=== PATIENT | female | born 1945 | race Two or more races ===

== ENCOUNTER 2022-12-03 02:40 | Emergency (ER) | payer OTHER ==
[~2022-12-03] VITALS: Ht 149.9 cm; Wt 78.0 kg
[2022-12-03] MEDS ORDERED: DEPAKOTE ER250 MG (02:49)
[2022-12-03] MEDS ORDERED: PROZAC10 MG (02:49)
== END 2022-12-03 11:38 | disposition home or self-care (01) ==
LOC: ER 02:40
DX: N30.90 Cystitis, unspecified without hematuria (principal); Z88.6 Allergy status to analgesic agent

== ENCOUNTER 2022-12-08 06:22 | Emergency (ER) | payer OTHER ==
[~2022-12-08] VITALS: Ht 149.9 cm; Wt 79.4 kg
[~2022-12-08 06:22] MED LIST: DEPAKOTE ER250 MG; PROZAC10 MG
== END 2022-12-08 10:38 | disposition home or self-care (01) ==
LOC: ER 06:22
DX: R30.0 Dysuria (principal); E11.9 Type 2 diabetes mellitus without complications; I10 Essential (primary) hypertension; Z88.8 Allergy status to other drugs, medicaments and biological substances

== ENCOUNTER 2023-01-19 21:15 | Emergency (ER) | payer OTHER ==
[~2023-01-19] VITALS: Ht 149.9 cm; Wt 68.9 kg
[2023-01-20] MEDS ORDERED: SILVADENE20 GM TOP (02:19)
== END 2023-01-20 02:26 ==
LOC: ER 21:15
DX: L30.8 Other specified dermatitis (principal); N39.0 Urinary tract infection, site not specified

== ENCOUNTER 2023-01-27 03:00 | Inpatient (IN) | payer OTHER ==
[~2023-01-27] VITALS: Ht 149.9 cm; Wt 68.9 kg
[~2023-01-27 03:00] MED LIST changes: +SILVADENE20 GM TOP
--- NOTE | 2023-01-27 03:30 | NUR ---
SE RECIBE FEMINA ALERTA Y ORIENTADA X3 QUIEN REFIERE ARDOR Y DOLOR VAGINAL ACOMPANADO DE SECRECIONES KIRTI DESDE HACE MAS DE 3 SEMANAS.
--- NOTE | 2023-01-27 04:19 | NUR ---
PTE EVALUADA POR QUIEN INDICA TX, PTE REFIERE ENTENDER Y ACEPTAR. ADMINISTRA MEDICAMENTOS Y BROCK MUESTRAS DE LABORATORIO MARTINE ORDEN MEDICA Y SIGUIENDO MEDIDAS ASEPTICAS.
--- NOTE | 2023-01-27 07:28 | NUR ---
SE RECIBE PTE FEMENINA DE 77 ANOS ALERTA Y ORIENTADA X3 QUIEN AL MOMENTO NO REFIERE DOLOR. PTE AL MOMENTO SE OBSERBA EN DESCANSO ABSOLUTO EN CAMA RECIBIENDO INFUCION DE 0,9% NSS A 125 ML/HRA POR MEDIO DE ANGIO #18 EN BRAZO IZQ. PTE AL MOMENTO PEND A ENTREGA DE U/A.
--- NOTE | 2023-01-27 21:17 | NUR ---
SE REALIZA CAMBIO DE PANAL A PTE, SE RENEA ASISTENCIA. SE INSERTA SONDA URINARIA A GRAVEDAD, TAMANO #16, BAJO MEDIDAS ESTERILES, MARTINE ORDEN EMDICA. SE OBSERVA EGRESO DE ORINA COLOR AMARILLO AMRY. SE DESTINY PTE EN WILTON NIVEL MAS BAJO CON BARANDAS ELEVADAS Y FRENOS COLOCADOS POR SEGURIDAD.
[2023-01-30] MEDS ORDERED: LISINOPRIL10 MG (07:43)
[2023-02-06] MEDS ORDERED: PEPCID AC20 MG PO ×2 (18:57→19:04)
[2023-02-06] MEDS ORDERED: MACROBID 100 M100 MG PO ×2 (18:57→19:03)
[2023-02-06] MEDS ORDERED: DOLOGESIC 500-1 EACH PO (18:59)
== END 2023-02-06 20:16 | disposition home or self-care (01) | DRG 690 ==
LOC: ER 03:00 → MEDI 22:44 → SEC-K 22:44 → MEDI 23:31 → MEDJ 02-01 20:54
PROVIDERS: General Practice; ADMIT Specialist; ATTEND Specialist
PROC: BW21YZZ Computerized Tomography (CT Scan) of Abdomen and Pelvis using Other Contrast (ICD-10-PCS; 2023-01-27)
PROC: BW21YZZ Computerized Tomography (CT Scan) of Abdomen and Pelvis using Other Contrast (ICD-10-PCS; 2023-01-30)
PROC: BR2CYZZ Computerized Tomography (CT Scan) of Pelvis using Other Contrast (ICD-10-PCS; 2023-01-31)
PROC: 02HV33Z Insertion of Infusion Device into Superior Vena Cava, Percutaneous Approach (ICD-10-PCS; principal; 2023-02-01)
DX: N39.0 Urinary tract infection, site not specified (principal); K52.89 Other specified noninfective gastroenteritis and colitis; E86.0 Dehydration; I10 Essential (primary) hypertension; E11.9 Type 2 diabetes mellitus without complications; Z79.4 Long term (current) use of insulin; F32.9 Major depressive disorder, single episode, unspecified; M17.12 Unilateral primary osteoarthritis, left knee; Z20.822 Contact with and (suspected) exposure to COVID-19; B96.20 Unspecified Escherichia coli [E. coli] as the cause of diseases classified elsewhere

== ENCOUNTER 2025-01-11 20:58 | Inpatient (IN) | payer OTHER ==
[~2025-01-11] VITALS: Ht 152.4 cm; Wt 63.5 kg
[~2025-01-11 20:58] MED LIST changes: +DOLOGESIC 500-1 EACH PO; +LISINOPRIL10 MG; +MACROBID 100 M100 MG PO; +PEPCID AC20 MG PO
[2025-01-11] MEDS ORDERED: LEVOTHYROXINE25 MC1 PO (21:17)
[2025-01-11] MEDS ORDERED: LANTUS SOL100 UNIT/1 SQ (21:18)
[2025-01-11] MEDS ORDERED: 0.9 % SODIUM CHLORIDE 1,000 ML IV STA (21:44)
[2025-01-11] MEDS ORDERED: HYOSCYAMINE SULFATE 0.125 MG TAB.SUBL SL ONE (21:45)
[2025-01-11 22:53] LABS: ALT/SGPT 19.0 U/L (12-78); AST/SGOT 23.0 U/L (15-37); BILIRUBIN TOTAL 0.57 mg/dL (0.3-1.2); BUN CREA RATIO 31.0 (7.0-25.0); CREATININE SERUM 0.65 mg/dL (0.55-1.02); GFR 87.7; GLOBULINA 5.6 G/DL (2.4-3.5); GLUCOSE FASTING 176.0 mg/dL (65-100); OSMOLALITY SERUM 284.0 MOSM/KG (275-295)
[2025-01-11 23:13] LABS: BASO % 0.5 % (0.1-1.2); EOS # 0.21 (0.04-0.54); EOS % 1.5 % (0.7-7.0); LYMPH # 2.92 (1.18-3.74); LYMPH % 20.4 % (19.3-53.1); MEAN PLATELET VOLUME 10.40 fl (9.4-12.4); MONO # 1.24 (0.24-0.82); MONO % 8.7 % (4.7-12.5); NEUT # 9.82 (1.56-6.13); NEUT % 68.6 % (34.0-71.1); RED CELL DISTRIBUTION WIDTH 13.2 % (11.6-14.4)
[2025-01-12] MEDS ORDERED: FAMOTIDINE/PF 20 MG in 0.9 % SODIUM CHLORIDE 8 ML IV PUSH STA (01:05)
[2025-01-12] MEDS ORDERED: DIPHENOXYLATE HCL/ATROPINE 1 UDTAB TABLET PO ONE (01:15)
[2025-01-12] MEDS ORDERED: METRONIDAZOLE/SODIUM CHLORIDE 500 MG/100 ML PIGGYBACK IV ONE (01:15)
[2025-01-12] MEDS ORDERED: CIPROFLOXACIN IN 5 % DEXTROSE 400 MG/200 ML PIGGYBAG IV ONE (01:15)
[2025-01-12] MEDS ORDERED: MECLIZINE HCL 25 MG TABLET PO ONE (02:00)
[2025-01-12 02:25] LABS: URINE APPEARANCE Turbid; URINE BILIRRUBIN Negative (NEGATIVE); URINE BLOOD Large; URINE COLOR Yellow; URINE GLUCOSE Negative (NEGATIVE); URINE KETONE Negative (NEGATIVE); URINE LEUKOCYTE Large; URINE NITRATE Positive; URINE UROBILINOGEN 1.0 E.U./dl
[2025-01-12 02:28] LABS: URINE EPITHELIAL CELLS 12.7 uL (0.0-38.8); URINE RBC 539.8 uL (0.0-20.8); URINE WBC 2996.4 uL (0.0-23.2)
[2025-01-12 03:27] LABS: URINE BACTERIA > 9821.5 uL (0.0-1933); URINE CAST 0.29 uL (0.0-1.40); URINE PROTEIN 100 (NEGATIVE)
[2025-01-12] MEDS ORDERED: KETOROLAC TROMETHAMINE 30 MG VIAL IV ONE (06:00)
[2025-01-12] MEDS ORDERED: DEXTROSE 50 % IN WATER 0.5 G/ML DISP.SYRIN IV PRN (07:30)
[2025-01-12] MEDS ORDERED: INSULIN LISPRO 1,000 UNIT/10 ML UNITS SUBCUTANEO PRN ×2 (07:30→17:30)
[2025-01-12] MEDS ORDERED: CIPROFLOXACIN IN 5 % DEXTROSE 200 ML IV SCH (09:00)
[2025-01-12] MEDS ORDERED: PANTOPRAZOLE SODIUM 40 MG in 0.9 % SODIUM CHLORIDE 8 ML IV PUSH SCH (17:29)
[2025-01-12] MEDS ORDERED: 0.9 % SODIUM CHLORIDE 1,000 ML IV SCH (17:30)
[2025-01-12] MEDS ORDERED: DEXTROSE 50 % IN WATER 0.5 G/ML VIAL IV PRN (17:30)
[2025-01-12] MEDS ORDERED: MORPHINE SULFATE 2 MG/ML CARTRIDGE IV PRN (17:45)
[2025-01-12] MEDS ORDERED: ACETAMINOPHEN 325 MG TABLET PO PRN (17:45)
[2025-01-12 22:03] VITALS: BP 146/85
[2025-01-13 01:56] VITALS: BP 153/80
[2025-01-13] MEDS ORDERED: LISINOPRIL 10 MG TABLET PO SCH (09:00)
[2025-01-13 09:12] VITALS: BP 164/60; O2SAT 100
[2025-01-13] MEDS ORDERED: DIVALPROEX SODIUM 250 MG TAB.ER.24H PO SCH (10:04)
[2025-01-13] MEDS ORDERED: FLUOXETINE HCL 10 MG CAPSULE PO SCH (10:04)
[2025-01-13 17:28] VITALS: BP 103/61
[2025-01-14 01:06] VITALS: BP 130/61
[2025-01-14 08:30] VITALS: BP 143/76
[2025-01-14 09:11] LABS: BASO % 0.4 % (0.1-1.2); EOS # 0.27 (0.04-0.54); EOS % 2.4 % (0.7-7.0); LYMPH # 3.38 (1.18-3.74); LYMPH % 29.5 % (19.3-53.1); MEAN PLATELET VOLUME 10.20 fl (9.4-12.4); MONO # 1.09 (0.24-0.82); MONO % 9.5 % (4.7-12.5); NEUT # 6.59 (1.56-6.13); NEUT % 57.6 % (34.0-71.1); RED CELL DISTRIBUTION WIDTH 13.2 % (11.6-14.4)
[2025-01-14 09:46] LABS: BUN CREA RATIO 23.0 (7.0-25.0); CREATININE SERUM 0.48 mg/dL (0.55-1.02); GFR 124.44; GLUCOSE FASTING 104.0 mg/dL (65-100); OSMOLALITY SERUM 283.0 MOSM/KG (275-295)
[2025-01-14 16:18] VITALS: BP 136/55
[2025-01-14] MEDS ORDERED: KETOROLAC TROMETHAMINE 30 MG VIAL IV PRN (22:00)
[2025-01-15 02:02] VITALS: BP 160/62
[2025-01-15 08:57] VITALS: BP 138/88; O2SAT 98
[2025-01-15 17:58] VITALS: BP 170/66
[2025-01-16 03:14] VITALS: BP 143/56; O2SAT 99
[2025-01-16 10:06] VITALS: BP 157/65; O2SAT 97
[2025-01-16 18:06] VITALS: BP 160/66
[2025-01-17 01:46] VITALS: BP 159/68; O2SAT 99
[2025-01-17 09:07] VITALS: BP 160/83; O2SAT 98
[2025-01-17] MEDS ORDERED: CEFTRIAXONE SODIUM 2,000 MG in 0.9 % SODIUM CHLORIDE 100 ML IV SCH (09:56)
[2025-01-17 18:52] VITALS: BP 150/55
[2025-01-18 02:54] VITALS: BP 106/87; O2SAT 95
[2025-01-18 09:50] VITALS: BP 147/80; O2SAT 99
[2025-01-18 17:05] VITALS: BP 134/80; O2SAT 98
[2025-01-18] MEDS ORDERED: CLONAZEPAM 0.5 MG TABLET PO SCH (21:00)
[2025-01-19 02:15] VITALS: BP 176/92
[2025-01-19] MEDS ORDERED: LEVALBUTEROL HCL 0.63 MG/3 ML SOLUTION IH SCH (08:55)
[2025-01-19] MEDS ORDERED: GUAIFENESIN 100 MG/5 ML BLIST.PACK PO SCH (08:56)
[2025-01-19 09:14] VITALS: BP 160/78; O2SAT 94
[2025-01-19] MEDS ORDERED: PANTOPRAZOLE SODIUM 40 MG in 0.9 % SODIUM CHLORIDE 8 ML IV PUSH STA (12:22)
[2025-01-19] MEDS ORDERED: ONDANSETRON HCL 2 MG/ML VIAL IV PRN (12:30)
[2025-01-19 18:44] VITALS: BP 160/64; O2SAT 96
[2025-01-19] MEDS ORDERED: ACETAMINOPHEN 325 MG TABLET PO PRN (22:45)
[2025-01-20 02:39] VITALS: BP 104/51; O2SAT 93
[2025-01-20 06:48] LABS: BASO % 0.4 % (0.1-1.2); EOS # 0.02 (0.04-0.54); EOS % 0.3 % (0.7-7.0); LYMPH # 0.82 (1.18-3.74); LYMPH % 10.4 % (19.3-53.1); MEAN PLATELET VOLUME 10.40 fl (9.4-12.4); MONO # 1.07 (0.24-0.82); NEUT # 5.94 (1.56-6.13); NEUT % 74.9 % (34.0-71.1); RED CELL DISTRIBUTION WIDTH 13.0 % (11.6-14.4)
[2025-01-20 06:58] LABS: ALT/SGPT 29.0 U/L (12-78); AST/SGOT 45.0 U/L (15-37); BILIRUBIN TOTAL 0.41 mg/dL (0.3-1.2); BUN CREA RATIO 18.0 (7.0-25.0); CREATININE SERUM 0.98 mg/dL (0.55-1.02); GFR 54.6; GLOBULINA 5.0 G/DL (2.4-3.5); GLUCOSE FASTING 101.0 mg/dL (65-100); OSMOLALITY SERUM 255.0 MOSM/KG (275-295)
[2025-01-20 07:09] LABS: MONO % 13.5 % (4.7-12.5)
[2025-01-20 08:55] VITALS: BP 111/66; O2SAT 96
[2025-01-20] MEDS ORDERED: KETOROLAC TROMETHAMINE 30 MG VIAL IV PRN (09:30)
[2025-01-20] MEDS ORDERED: IPRATROPIUM BROMIDE 0.5 MG/2.5 ML AMPUL.NEB IH NR (12:00)
[2025-01-20] MEDS ORDERED: SPIRONOLACTONE 50 MG TABLET PO SCH (13:00)
[2025-01-20] MEDS ORDERED: IPRATROPIUM BROMIDE 0.5 MG/2.5 ML AMPUL.NEB IH SCH (17:00)
[2025-01-20] MEDS ORDERED: METOCLOPRAMIDE HCL 5 MG/ML VIAL IV SCH (17:00)
[2025-01-20 19:36] VITALS: BP 141/81
[2025-01-21 02:02] VITALS: BP 117/67; O2SAT 93
[2025-01-21 06:50] LABS: BUN CREA RATIO 34.0 (7.0-25.0); CREATININE SERUM 0.77 mg/dL (0.55-1.02); GFR 72.13; GLUCOSE FASTING 102.0 mg/dL (65-100); OSMOLALITY SERUM 260.0 MOSM/KG (275-295)
[2025-01-21 09:17] VITALS: BP 94/50; O2SAT 96
[2025-01-21 17:19] VITALS: BP 102/57; O2SAT 98
[2025-01-21] MEDS ORDERED: CLONAZEPAM 0.5 MG TABLET PO SCH (21:00)
== END 2025-01-21 21:25 | disposition home or self-care (01) | DRG 392 ==
LOC: ER 20:58 → MEDJ 01-12 17:35
PROVIDERS: Internal Medicine; ADMIT Internal Medicine; ATTEND Internal Medicine
PROC: BW21ZZZ Computerized Tomography (CT Scan) of Abdomen and Pelvis (ICD-10-PCS; principal; 2025-01-11)
PROC: 02HV33Z Insertion of Infusion Device into Superior Vena Cava, Percutaneous Approach (ICD-10-PCS; 2025-01-19)
DX: K52.9 Noninfective gastroenteritis and colitis, unspecified (principal); N39.0 Urinary tract infection, site not specified; I10 Essential (primary) hypertension; E11.9 Type 2 diabetes mellitus without complications; Z79.4 Long term (current) use of insulin; B96.20 Unspecified Escherichia coli [E. coli] as the cause of diseases classified elsewhere; L89.159 Pressure ulcer of sacral region, unspecified stage; K60.40 Rectal fistula, unspecified